=== PATIENT | male | born 1955 | race Caucasian/White ===

== ENCOUNTER 2019-07-08 10:24 | Day surgery (SDC) | payer OTHER ==
[2019-07-08] MEDS ORDERED: PROPOFOL 20 ML (12:50)
== END 2019-07-08 15:19 | disposition home or self-care (01) ==
LOC: GIL 10:24
DX: K21.9 Gastro-esophageal reflux disease without esophagitis (principal); K29.60 Other gastritis without bleeding
CPT/HCPCS: 43239; 88305; 88312